=== PATIENT | female | born 1995 | race Caucasian/White ===

== ENCOUNTER 2016-12-13 23:16 | Inpatient (IN) | payer BC ==
[2016-12-13] MEDS ORDERED: SODIUM CHLORIDE 0.9% 1,000 ML IV STA (23:34)
[2016-12-13] MEDS ORDERED: ACETAMINOPHEN TAB 500 MG TAB PO STA (23:34)
--- NOTE | 2016-12-13 23:49 | ED ---
Female Urogenital HPI <Lowell Arriaga - Last Filed: 12/14/16 01:32> - General Source: patient, RN notes reviewed Mode of arrival: wheelchair Limitations: no limitations - History of Present Illness Last Menstrual Period: 05/13/16 <Aaliyah Myers - Last Filed: 12/14/16 01:36> - General Chief complaint: Vaginal Bleeding Stated complaint: abdominal pain vag bleeding Time Seen by Provider: 12/13/16 23:27 - History of Present Illness Initial comments: 20-year-old female presents emergency Department chief complaint of lower abdominal pain. Patient has had this of lower abdominal pain for the last day or so. Patient states that she noticed some blood on the toilet paper today. Patient states she is a . Patient states his belly . Patient states she was concerned due to her continued abdominal pain so she thought that she should be evaluated. Patient states the pain comes and goes at will get intense and then lessened. Patient states he is not currently having any other symptoms. Patient denies any recent fever, chills, shortness of breath, chest pain, back pain, nausea vomiting, numbness or tingling, dysuria or hematuria, constipation or diarrhea, headaches or visual changes, or any other current symptoms. (Aaliyah Myers) - Related Data Home Medications Medication Instructions Recorded Confirmed No Known Home Medications [No 09/20/16 09/20/16 Known Home Medications] Allergies Allergy/AdvReac Type Severity Reaction Status Date / Time Sulfa (Sulfonamide Allergy Unknown Verified 12/13/16 23:24 Antibiotics) Review of Systems ROS Other: All systems not noted in ROS Statement are negative. <Lowell Arriaga - Last Filed: 12/14/16 01:32> ROS Other: All systems not noted in ROS Statement are negative. <Aaliyah Myers - Last Filed: 12/14/16 01:36> ROS Statement: Those systems with pertinent positive or pertinent negative responses have been documented in the HPI. Past Medical History Past Medical History: Seizure Disorder History of Any Multi-Drug Resistant Organisms: None Reported Past Surgical History: Appendectomy Additional Past Surgical History / Comment(s): pda ligation Past Psychological History: Anxiety, Depression Smoking Status: Never smoker Past Alcohol Use History: None Reported Past Drug Use History: None Reported <Aaliyah Myers - Last Filed: 12/14/16 01:36> General Exam <Lowell Arriaga - Last Filed: 12/14/16 01:32> Limitations: no limitations <Aaliyah Myers - Last Filed: 12/14/16 01:36> - General Exam Comments Initial Comments: General: The patient is awake and alert, in no distress, and does not appear acutely ill. Eye: Pupils are equal, round and reactive to light, extra-ocular movements are intact; there is normal conjunctiva bilaterally. No signs of icterus. Ears, nose, mouth and throat: There are moist mucous membranes. Neck: The neck is supple, there is no tenderness. Cardiovascular: There is a regular rate and rhythm. No murmur, rub or gallop is appreciated. Respiratory: Lungs are clear to auscultation, respirations are non-labored, breath sounds are equal. No wheezes, stridor, rales, or rhonchi. Gastrointestinal: Soft, non-distended, mild suprapubic tenderness of the abdomen without masses or organomegaly noted. There is no rebound or guarding present. No CVA tenderness. Bowel sounds are unremarkable. Back: There is no tenderness to palpation in the midline. There is no obvious deformity. No rashes noted. Musculoskeletal: Normal ROM, no tenderness, There is no pedal edema. There is no calf tenderness or swelling. Sensation intact. Pulses equal bilaterally 2+. Neurological: CN II-XII intact, There are no obvious motor or sensory deficits. Coordination appears grossly intact. Speech is normal. Skin: Skin is warm and dry and no rashes or lesions are noted. Psychiatric: Cooperative, appropriate mood & affect, normal judgment. (Aaliyah Myers) Medical Decision Making - Lab Data Result diagrams: 12/13/16 23:55 12/13/16 23:55 <Lowell Arriaga - Last Filed: 12/14/16 01:32> - Lab Data Result diagrams: 12/13/16 23:55 12/13/16 23:55 - Radiology Data Radiology results: report reviewed, image reviewed <Aaliyah Myers - Last Filed: 12/14/16 01:36> - Medical Decision Making Patient reevaluated by myself, Dr. Arriaga. Patient complains of bleeding and lower abdominal/pelvic cramping for the past 4-5 hours. Patient abdomen is distended consistent with 19 weeks gravid state. Minimal tenderness to exam. Ultrasound report reviewed. Case discussed in detail with Dr. Ellison, who will admit to labor and delivery for Dr. Reynoso. Patient was updated. (Lowell Arriaga) 20-year-old female presents emergency 5 chief complaint of lower abdominal pain. At this time the PSYCHOLOGIST Dr. Reynoso was contacted and they will admit the patient to labor and delivery. We will admit the patient at this time. ( Aaliyah Myers) - Lab Data Lab Results 12/13/16 12/13/16 12/13/16 Range/Units 23:55 23:55 23:55 WBC 12.3 H (3.8-10.6) k/uL RBC 4.02 (3.80-5.40) m/uL Hgb 12.7 (11.4-16.0) gm/dL Hct 35.4 (34.0-46.0) % MCV 88.0 (80.0-100.0) fL MCH 31.6 (25.0-35.0) pg MCHC 35.9 (31.0-37.0) g/dL RDW 13.2 (11.5-15.5) % Plt Count 295 (150-450) k/uL Neutrophils % 76 % Lymphocytes % 16 % Monocytes % 5 % Eosinophils % 1 % Basophils % 0 % Neutrophils # 9.4 H (1.3-7.7) k/uL Lymphocytes # 1.9 (1.0-4.8) k/uL Monocytes # 0.6 (0-1.0) k/uL Eosinophils # 0.1 (0-0.7) k/uL Basophils # 0.0 (0-0.2) k/uL Sodium 137 (137-145) mmol/L Potassium 4.1 (3.5-5.1) mmol/L Chloride 104 (98-107) mmol/L Carbon Dioxide 24 (22-30) mmol/L Anion Gap 9 mmol/L BUN 8 (7-17) mg/dL Creatinine 0.52 (0.52-1.04) mg/dL Est GFR (MDRD) Af Amer >60 (>60 ml/min/1.73 sqM) Est GFR (MDRD) Non-Af >60 (>60 ml/min/1.73 sqM) Glucose 87 (74-99) mg/dL Calcium 9.4 (8.4-10.2) mg/dL Total Bilirubin 0.4 (0.2-1.3) mg/dL AST 18 (14-36) U/L ALT 17 (9-52) U/L Alkaline Phosphatase 50 (38-126) U/L Total Protein 6.7 (6.3-8.2) g/dL Albumin 3.8 (3.5-5.0) g/dL HCG, Quant 60264.5 mIU/mL Urine Color Urine Appearance (Clear) Urine pH (5.0-8.0) Ur Specific [place] (1.001-1.035) Urine Protein (Negative) Urine Glucose (UA) (Negative) Urine Ketones (Negative) Urine Blood (Negative) Urine Nitrate (Negative) Urine Bilirubin (Negative) Urine Urobilinogen (<2.0) mg/dL Ur Leukocyte Esterase (Negative) Urine RBC (0-5) /hpf Urine WBC (0-5) /hpf Ur Squamous Epith Cells (0-4) /hpf Amorphous Sediment (None) /hpf Urine Mucus (None) /hpf Blood Type O Positive Blood Type Recheck No 12/14/16 Range/Units 00:35 WBC (3.8-10.6) k/uL RBC (3.80-5.40) m/uL Hgb (11.4-16.0) gm/dL Hct (34.0-46.0) % MCV (80.0-100.0) fL MCH (25.0-35.0) pg MCHC (31.0-37.0) g/dL RDW (11.5-15.5) % Plt Count (150-450) k/uL Neutrophils % % Lymphocytes % % Monocytes % % Eosinophils % % Basophils % % Neutrophils # (1.3-7.7) k/uL Lymphocytes # (1.0-4.8) k/uL Monocytes # (0-1.0) k/uL Eosinophils # (0-0.7) k/uL Basophils # (0-0.2) k/uL Sodium (137-145) mmol/L Potassium (3.5-5.1) mmol/L Chloride (98-107) mmol/L Carbon Dioxide (22-30) mmol/L Anion Gap mmol/L BUN (7-17) mg/dL Creatinine (0.52-1.04) mg/dL Est GFR (MDRD) Af Amer (>60 ml/min/1.73 sqM) Est GFR (MDRD) Non-Af (>60 ml/min/1.73 sqM) Glucose (74-99) mg/dL Calcium (8.4-10.2) mg/dL Total Bilirubin (0.2-1.3) mg/dL AST (14-36) U/L ALT (9-52) U/L Alkaline Phosphatase (38-126) U/L Total Protein (6.3-8.2) g/dL Albumin (3.5-5.0) g/dL HCG, Quant mIU/mL Urine Color Light Yellow Urine Appearance Cloudy H (Clear) Urine pH 7.0 (5.0-8.0) Ur Specific [place] 1.006 (1.001-1.035) Urine Protein Negative (Negative) Urine Glucose (UA) Negative (Negative) Urine Ketones Negative (Negative) Urine Blood Moderate H (Negative) Urine Nitrate Negative (Negative) Urine Bilirubin Negative (Negative) Urine Urobilinogen <2.0 (<2.0) mg/dL Ur Leukocyte Esterase Negative (Negative) Urine RBC 1 (0-5) /hpf Urine WBC 1 (0-5) /hpf Ur Squamous Epith Cells 1 (0-4) /hpf Amorphous Sediment Occasional H (None) /hpf Urine Mucus Rare H (None) /hpf Blood Type Blood Type Recheck Disposition <Lowell Arriaga - Last Filed: 12/14/16 01:32> Time of Disposition: 01:36 Decision Date: 12/14/16 Decision Time: 01:36 <Aaliyah Myers - Last Filed: 12/14/16 01:36> Clinical Impression: Threatened Disposition: ADMITTED IP TO THIS [facility] Condition: Stable Addendum entered and electronically signed by Aaliyah Myers PAC 12/14/16 01:58: Physical Examination Pelvic exam was performed there does appear to be the amniotic sac in the vaginal canal unable to see cervix at this time.
[2016-12-14 00:18] LABS: Basophils % (A) 0 %; CH 31.6; Eosinophils # (A) 0.1 k/uL (0-0.7); Eosinophils % (A) 1 %; HCT 35.4 % (34.0-46.0); HDW 2.62; HGB 12.7 gm/dL (11.4-16.0); Luc # (Auto) 0.25; Luc % (Auto) 2; Lymphocytes # (A) 1.9 k/uL (1.0-4.8); Lymphocytes % (A) 16 %; MCH 31.6 pg (25.0-35.0); MCHC 35.9 g/dL (31.0-37.0); Mean Platelet Volume 7.7; Monocytes # (A) 0.6 k/uL (0-1.0); Monocytes % (A) 5 %; Neutrophils # (A) 9.4 k/uL (1.3-7.7); Neutrophils % (A) 76 %; RBC 4.02 m/uL (3.80-5.40); RDW 13.2 % (11.5-15.5); WBC 12.3 k/uL (3.8-10.6); WBC (Perox) 12.84
[2016-12-14 00:27] LABS: ALT 17 U/L (9-52); AST 18 U/L (14-36); Alkaline Phosphatase 50 U/L (38-126); Anion Gap 9 mmol/L; Blood Urea Nitrogen 8 mg/dL (7-17); Calcium 9.4 mg/dL (8.4-10.2); Carbon Dioxide 24 mmol/L (22-30); Chloride 104 mmol/L (98-107); Glucose 87 mg/dL (74-99); Non-African American GFR(MDRD) >60 (>60 ml/min/1.73 sqM); Potassium 4.1 mmol/L (3.5-5.1); Sodium 137 mmol/L (137-145); Total Bilirubin 0.4 mg/dL (0.2-1.3); Total Protein 6.7 g/dL (6.3-8.2)
[2016-12-14 00:54] VITALS: RESP 16
[2016-12-14 01:11] LABS: HCG,Quantitative Serum 63254.5 mIU/mL
--- NOTE | 2016-12-14 01:21 | US ---
US OB 2ND TRIMESTER INDICATION: 21-year-old woman, clinical age 18 weeks 4 days, presenting with pain. COMPARISON: Ultrasound 09/20/16 TECHNIQUE: Real-time sonographic evaluation of the is performed using grayscale and color flow. FINDINGS: There is a single live intrauterine with fetus in breech presentation. The cervix appears open with bulging membranes and feet extending within the membranes into the cervix. The placenta is posterior with accessory anterior lobe. There is no evidence of placenta previa. Amniotic fluid index is normal measuring 12.7 cm. heart rate is 148 BPM. BPD 4.37 cm 19 weeks 2 days HC 16.50 cm 19 weeks 2 days AC 14.24 cm 19 weeks 4 days FL 2.87 cm 18 weeks 6 days By this ultrasound, estimated gestational age is 19 weeks 0 days +/-1 week corresponding to a sonographic LELA of 05/10/17, concordant with prior dating. Estimated weight is 281.10+/-42.16 g corresponding to the estimated weight percentile of 83.3%. HC/AC ratio is 1.16 (normal range for this fetus is 1.09-1.26). IMPRESSION: Single-live intrauterine with EGA of 19 weeks 0 days +/-1 week corresponding to a sonographic LELA of 05/10/17. Bulging membranes through the internal os of the cervix with breech presentation fetus. feet appear to be extending along with the bulging membranes into the cervix. The placenta is posterior with succenturiate anterior lobe. Normal MAIKEL indiex of 12.7 cm.
[2016-12-14] MEDS ORDERED: MORPHINE SULFATE 4 MG/ML SYRINGE IVP STA (01:25)
[2016-12-14 01:30] LABS: Amorphous Sediment,Urine Occasional /hpf; Appearance,Urine Cloudy (Clear); Bilirubin,Urine Negative (Negative); Glucose,Urine (UA) Negative (Negative); Ketones,Urine Negative (Negative); Leukocyte Esterase,Urine Negative (Negative); Mucus,Urine Rare /hpf; Nitrite,Urine Negative (Negative); Particle Count 5695; Protein,Urine Negative (Negative); RBC,Urine 1 /hpf (0-5); Specific Gravity,Urine 1.006 (1.001-1.035); Squamous Epithelial Cell,Urine 1 /hpf (0-4); UA Billing (MACRO vs. MICRO) MICRO; Urobilinogen,Urine <2.0 mg/dL (<2.0); WBC,Urine 1 /hpf (0-5)
[2016-12-14 02:36] VITALS: BMI 19.9
[2016-12-14] MEDS ORDERED: BUTORPHANOL 1 MG/ML 1 ML VIAL IV PRN (02:36)
[2016-12-14] MEDS ORDERED: KETOROLAC 30 MG/ML 1 ML VIAL IVP PRN (06:11)
[2016-12-14] MEDS ORDERED: LACTATED RINGERS 1,000 ML IV SCH ×2 (06:15→06:30)
[2016-12-14] MEDS ORDERED: LIDOCAINE 1% (PF) 10 MG/ML (30 ML SDV) SQ PRN (06:18)
[2016-12-14] MEDS ORDERED: TERBUTALINE 1 MG/ML VIAL SQ PRN (06:18)
[2016-12-14] MEDS ORDERED: OXYTOCIN 10 UNIT/ML 1 ML VIAL IM PRN (06:18)
[2016-12-14] MEDS ORDERED: METHYLERGONOVINE 0.2 MG/ML 1 ML AMP IM PRN (06:18)
[2016-12-14] MEDS ORDERED: CARBOPROST TROMETHAMINE 250 MCG/ML 1 ML AMP IM PRN (06:18)
--- NOTE | 2016-12-14 06:39 | P.HPOB ---
History of Present Illness H&P Date: 12/14/16 Chief Complaint: Abdominal pain at 18-4/7 weeks' This is a 20-year-old 1 para 0 woman with an estimated due date of 05/13 based on six-week ultrasound who presents in the emergency room with worsening severe lower abdominal pain. She reports intermittent episodes of "round ligament" pain for the last 2 or 3 weeks. This started approximately 5 PM on 12/13/2016 and progressed to significant pain by later in the evening. She then noticed small amount of bright red bleeding and therefore came to the emergency room. In the emergency room she underwent ultrasound which showed hourglassing membranes into the vaginal canal and an infant in the breech presentation. 19 week, 0 day fetus with positive heart rate was noted. The placenta was noted to be posterior with an accessory lobe. MAIKEL greater than 12. She was afebrile and had a normal white blood cell count. She is admitted to labor and delivery for further evaluation. She has a past medical history significant for psychogenic nonepileptic seizures. She is not on anti-seizure medications. Atypical seizures occur in stressful situations. Her family reports a seizure at approximately 5:30 this morning. Assessment by the nursing staff at that time was that it was not a generalized or typical seizure. The patient was coherent throughout and able to talk. She had a grossly normal bilateral neurologic exam and had stable vital signs throughout. No obvious seizure activity was witnessed. Review of Systems Constitutional: Denies chills, Denies fever Cardiovascular: Denies chest pain, Denies high blood pressure, Denies irregular heart beat, Denies lightheadedness, Denies rapid heart beat, Denies shortness of breath Respiratory: Denies cough Gastrointestinal: Denies BRBPR, Denies nausea, Denies vomiting Genitourinary: Reports abnormal vaginal bleeding, Reports Integumentary: Denies pruritus, Denies rash Neurological: Reports seizures, Denies headaches, Denies visual changes Past Medical History Past Medical History: Seizure Disorder Additional Past Medical History / Comment(s): Psychogenic nonepileptic seizure disorder, not on medications History of Any Multi-Drug Resistant Organisms: None Reported Past Surgical History: Appendectomy Additional Past Surgical History / Comment(s): pda ligation Past Anesthesia/Blood Transfusion Reactions: No Reported Reaction Past Psychological History: Anxiety, Depression Smoking Status: Never smoker Past Alcohol Use History: None Reported Past Drug Use History: None Reported - Past Family History Mother Family Medical History: Asthma Additional Family Medical History / Comment(s): Mother with history of cervical incompetence and deliveries Medications and Allergies Home Medications Medication Instructions Recorded Confirmed Type No Known Home Medications [No 09/20/16 12/14/16 History Known Home Medications] Allergies Allergy/AdvReac Type Severity Reaction Status Date / Time Sulfa (Sulfonamide Allergy Unknown Verified 12/13/16 23:24 Antibiotics) Exam - Vital Signs Vital signs: Vital Signs Temp Pulse Pulse Resp BP BP Pulse Ox 12/14/16 02:12 97.8 F 91 16 117/61 98 12/14/16 02:00 98.2 F 95 16 108/62 98 Intake and Output 12/13/16 12/13/16 12/14/16 14:59 22:59 06:59 Other: Weight 52.617 kg Patient Weight 12/14/16 06:59 Weight 52.617 kg Upon my initial evaluation which was approximately 20 minutes after being called for the patient having a seizure, she is not post ictal in appearance. She is oriented to person place and time. She is conversational. She has no obvious focal deficits. Strength, range of motion are intact bilaterally. Normal speech patterns. She is resting comfortably in the bed and is able to answer questions appropriately. Her vital signs are stable. The abdomen is soft and tender. The fundus of the uterus is at the umbilicus and is tender with palpation. On pelvic examination there are membranes in the vaginal canal and there is a moderate amount of bloody show. She is having contractions approximately every 5-10 minutes. Results Result Diagrams: 12/13/16 23:55 12/13/16 23:55 US - abdomen: report reviewed Assessment and Plan (1) 18 weeks gestation of Status: Acute (2) Seizure disorder during in second trimester Status: Acute (3) Threatened Status: Acute Plan: This is a 20-year-old 1 para 0 woman at 18 weeks and 4 days with dilated cervix and prolapsing membranes. She has a history of an atypical seizure disorder and may have had a small seizure but is not currently post ictal antiseizure activity was not witnessed by nursing staff. The concerning nature of the situation is reviewed with the patient, the father of the baby, and her family. I believe delivery is likely in the short-term. They understand that at 18-19 weeks that there is no possibility of viability of the fetus and no intervention will be undertaken for resuscitation. At this point she is not a candidate for a rescue cerclage. She has no evidence of active infection but is having some mild to moderate vaginal bleeding. Comfort measures and observation at this time. Her blood type is O+. Time with Patient: Greater than 30
[2016-12-14] MEDS ORDERED: diphenhydrAMINE 50 MG CAP PO PRN (10:52)
[2016-12-14] MEDS ORDERED: BENZOCAINE/MENTHOL SPRAY 1 GM/SPRAY AEROSOL TOPICAL PRN (10:52)
[2016-12-14] MEDS ORDERED: IBUPROFEN 600 MG TAB PO PRN (10:52)
[2016-12-14] MEDS ORDERED: WITCH HAZEL 1 EACH MED..PAD TOPICAL PRN (10:52)
[2016-12-14] MEDS ORDERED: HYDROCORTISONE 2.5% RECTAL CREAM 30 GM TUBE RECTAL PRN (10:52)
[2016-12-14] MEDS ORDERED: diphenhydrAMINE 25 MG CAP PO PRN (10:52)
[2016-12-14] MEDS ORDERED: diphenhydrAMINE 50 MG/ML 1 ML VIAL IVP PRN ×2 (10:52)
[2016-12-14] MEDS ORDERED: ACETAMINOPHEN TAB 325 MG TAB PO PRN (10:52)
[2016-12-14] MEDS ORDERED: SIMETHICONE 80 MG CHEWABLE PO PRN (10:52)
[2016-12-14] MEDS ORDERED: ZOLPIDEM 5 MG TAB PO PRN (10:52)
[2016-12-14] MEDS ORDERED: LANOLIN CREAM 5 GM TUBE TOPICAL PRN (10:52)
--- NOTE | 2016-12-14 10:52 | P.PROBDLV ---
Vaginal Delivery Note - . Vaginal Delivery Note: The patient is a 20-year-old 1 para 0 admitted at 18+ weeks by a reported 6 week ultrasound in the emergency room. She was admitted with significant cramping and found to have hourglassing membranes a small parts in the vagina. Ultrasound demonstrated roughly 18 week . She did have also some ongoing bleeding. She was admitted and the counseled regarding the diagnosis of inevitable . She had minimal ongoing cramping through the night but ultimately was reexamined this morning at approximately 08 30 at which time most of the fetus was noted be in the vagina with in an intact bag of water. She then for down and pushed at which time spontaneous rupture of membranes is noted for clear fluid. She was able to deliver the fetus with minimal difficulty in footling breech presentation. The cord was clamped and the fetus removed to the nursery. Examination of the fetus from a of phenotypic standpoint demonstrates no obvious anomalies. The ears may be slightly low-set and the hands and feet appear to be quite small. The genitalia appears to be female but is somewhat ambiguous. My overall impression is that the fetus is at a younger gestational age than previously predicted. There was no heartbeat upon delivery. The cord had been clamped and , approximately an hour later, the placenta was delivered and appeared to be intact though it was somewhat macerated. There was adherent clot to a portion of the placenta as well as to the membranes which was likely not etiologic in nature. Examination the perineum and vagina demonstrated no lacerations. The uterus was firm and well below the umbilicus with no significant ongoing bleeding. We did discuss options for evaluation to include chromosomes to which the patient has agreed. There is a consideration for hysterosalpingogram in the future to check for bicornuate uterus or other anatomic concerns. There certainly is also a concern for the possibility of incompetent cervix. Maternal medicine consultation will undoubtedly be sought before another is entertained. Estimated blood loss for the entire delivery process was approximately 250 mL. There were no complications. All sponge, instrument, and needle counts were correct. The patient is resting comfortably in recovery and appears to be grieving appropriately. She will likely be discharged home in several hours when stable.
[2016-12-14] MEDS ORDERED: OXYTOCIN 30 UNITS/500 ML NS 30 UNIT in SALINE 1 500ML.BAG IV SCH (11:00)
[2016-12-14 11:17] VITALS: TEMP 98.3
--- NOTE | 2016-12-14 12:23 | P.DS ---
Providers Date of admission: 12/14/16 01:36 Expected date of discharge: 12/14/16 Attending physician: Lizbeth Ellison Primary care physician: Wesley Interiano - Discharge Diagnosis(es) (1) Complete inevitable without complication Current Visit: Yes Status: Acute (2) 18 weeks gestation of Current Visit: Yes Status: Acute Hospital Course: The patient is a 20-year-old 1 para 0 admitted through the emergency room last evening with reports of increased cramping and vaginal bleeding. See history of present illness for details. In the emergency room, she had pelvic ultrasound demonstrating hourglassing membranes into the vagina with the fetus in breech presentation and small parts in the vagina as well. She was admitted for the diagnosis of inevitable . She was managed expectantly and continued to have some cramping though no significant discomfort. This morning , she was checked and found to have the majority of the fetus in the vagina with the bag of water. She was asked to push and did deliver in the double footling breech position a previable fetus without heart tones. Gross examination of the fetus demonstrates no obvious phenotypic issues though there is some ambiguity to the genitalia. The fetus also appears to be somewhat earlier than the gestational age suggested by ultrasound at 19 weeks. Her dating parameters were made by a 6 week ultrasound through the emergency room as well. She, shortly after delivery of the fetus, delivered the placenta which appeared to be intact though it was certainly macerated. She had no significant ongoing bleeding and was deemed stable for discharge by hospital day #2 approximately 4 hours after delivery of the fetus. She was discharged home to follow-up in the office in approximately 4 weeks' time and to call for any significantly increased bleeding or foul-smelling lochia, significantly increased fever or abdominal pain, perineal complaints, breast complaints, or anything else that concerned her. We did discuss options for workup which will include karyotype and consideration for hysterosalpingogram. She will additionally likely have a maternal medicine consultation prior to entertaining another . Maternal blood type is O+ and rubella status is immune. Procedures: Spontaneous vaginal delivery of the footling breech previable fetus Patient Condition at Discharge: Stable Plan - Discharge Summary Discharge Medication List No Known Home Medications [No Known Home Medications] 09/20/16 [History] Follow up Appointment(s)/Referral(s): Wesley Interiano MD [Primary Care Provider] - 1-2 days Andrew Jerez MD [STAFF PHYSICIAN] - 4 Weeks Discharge Disposition: HOME SELF-CARE
[2016-12-14 12:55] VITALS: BP 101/56; PULSE 82
[2016-12-14] MEDS ORDERED: SENNOSIDES-DOCUSATE SODIUM 1 EACH TAB PO SCH (20:00)
== END 2016-12-14 14:20 | disposition home or self-care (01) | DRG 779 ==
LOC: EC 23:16 → 4FBP 12-14 01:36
PROVIDERS: ADMIT Obstetrics & Gynecology; ATTEND Obstetrics & Gynecology
PROC: 10E0XZZ Delivery of Products of Conception, External Approach (ICD-10-PCS; principal; 2016-12-14)
DX: O03.9 Complete or unspecified spontaneous abortion without complication (principal); O99.352 Diseases of the nervous system complicating pregnancy, second trimester; G40.909 Epilepsy, unspecified, not intractable, without status epilepticus; Z37.1 Single stillbirth; O32.8XX0 Maternal care for other malpresentation of fetus, not applicable or unspecified; Z3A.19 19 weeks gestation of pregnancy; Z86.59 Personal history of other mental and behavioral disorders
CPT/HCPCS: 36415; 76805; 80053; 81001; 84702; 85025; 86900; 86901; 87086; 88233; 88262; 88300; 88305; 96361; 96374; 99285

== ENCOUNTER → 2017-02-17 | Outpatient (CLI) | payer BC ==
[2017-02-17 12:59] LABS: Basophils % (A) 1 %; Eosinophils # (A) 0.1 k/uL (0-0.7); Eosinophils % (A) 1 %; HCT 38.4 % (34.0-46.0); HGB 12.7 gm/dL (11.4-16.0); Hypochromasia Slight; Luc % (Auto) 3; Lymphocytes % (A) 30 %; MCH 28.9 pg (25.0-35.0); MCV 87.5 fL (80.0-100.0); Mean Platelet Volume 6.7; Monocytes # (A) 0.6 k/uL (0-1.0); Monocytes % (A) 9 %; Neutrophils # (A) 3.9 k/uL (1.3-7.7); Neutrophils % (A) 57 %; RBC 4.39 m/uL (3.80-5.40); RDW 11.8 % (11.5-15.5); WBC 6.7 k/uL (3.8-10.6); WBC (Perox) 6.98
== END | disposition home or self-care (01) ==
LOC: LABPAT 12:39
PROVIDERS: ATTEND Obstetrics & Gynecology
DX: Z01.812 Encounter for preprocedural laboratory examination (principal); O73.1 Retained portions of placenta and membranes, without hemorrhage
CPT/HCPCS: 85025

== ENCOUNTER 2017-02-22 07:11 | Day surgery (SDC) | payer BC ==
[2017-02-17 12:00] VITALS: BMI 20.5
[~2017-02-22 07:11] MED LIST: DEXAMETHASONE SOD PHOSPHATE 10 MG/ML 1 ML VIAL IV ONE; HYDROmorphone 1 MG/ML 1 ML SYRINGE IVP PRN; LACTATED RINGERS 1,000 ML IV SCH; MIDAZOLAM 2 MG/2 ML VIAL IV PRN; ONDANSETRON 4 MG/2 ML VIAL IVP ONE; Pre Op ABX Message 1 EACH MISC MISCELLANE ONE; SCOPOLAMINE 1.5MG/72HR PATCH TRANSDERM ONE
[2017-02-22] MEDS ORDERED: LIDOCAINE 1% 20 ML VIAL (10MG/ML) FOR IV START INTRADERMA ONE (07:59)
[2017-02-22] MEDS ORDERED: KETOROLAC 30 MG/ML 1 ML VIAL ONE (08:23)
[2017-02-22] MEDS ORDERED: LIDOCAINE 1% INJ 10MG/ML (20 ML MDV) ONE (08:23)
[2017-02-22] MEDS ORDERED: fentaNYL (PF) 50 MCG/ML 2 ML AMP ONE (08:23)
[2017-02-22] MEDS ORDERED: PROPOFOL 10 MG/ML 20 ML VIAL IV ONE (08:23)
[2017-02-22] MEDS ORDERED: MIDAZOLAM 2 MG/2 ML VIAL ONE (08:23)
[2017-02-22] MEDS ORDERED: IBUPROFEN 600 MG TAB PO PRN (08:25)
[2017-02-22] MEDS ORDERED: METOCLOPRAMIDE 5 MG/ML 2 ML VIAL IVP PRN (08:25)
[2017-02-22] MEDS ORDERED: diphenhydrAMINE 50 MG/ML 1 ML VIAL IVP PRN (08:25)
[2017-02-22] MEDS ORDERED: KETOROLAC 30 MG/ML 1 ML VIAL IVP PRN (08:25)
[2017-02-22] MEDS ORDERED: Acetaminophen-Codeine 300-30mg TAB PO PRN ×2 (08:25)
[2017-02-22] MEDS ORDERED: ONDANSETRON 4 MG/2 ML VIAL IVP PRN (08:25)
[2017-02-22] MEDS ORDERED: SIMETHICONE 80 MG CHEWABLE PO PRN (08:25)
[2017-02-22] MEDS ORDERED: LACTATED RINGERS 1,000 ML IV SCH (08:30)
--- NOTE | 2017-02-22 08:59 | P.OP ---
Date of Procedure: 02/22/17 Preoperative Diagnosis: #1. Status post 18 week spontaneous approximately 10 weeks ago #2. Probable retained products of conception #3. Possible septate uterus Postoperative Diagnosis: Same Procedure(s) Performed: #1. Diagnostic hysteroscopy #2. Dilation and curettage Implants: Anesthesia: other (Gen. by face mask) Surgeon: Andrew Jerez Estimated Blood Loss (ml): 25 IV fluids (ml): 400 Urine output (ml): 5 Pathology: other (Intrauterine contents, probable retained products of conception) Indications for Procedure: Operative Findings: Preoperative pelvic examination demonstrated a roughly 5 week anteverted mobile normal shaped uterus with the cervix open to approximately 1 cm. There was some moderate ongoing bleeding present. Hysteroscopic Rachid, the uterus was distended using sorbitol which did produce an excellent view of what was normal certainly retained products of conception. A septum was not clearly identified secondary to the retained products. With sharp curettage, a fairly significant amount tissue was removed between the sharp curet and the polyp forceps. There was the sensation of a possible short septum at the fundus of the uterus. Otherwise the typical gritty texture was encountered following curettage and removal of the tissue. Description of Procedure: The patient was prepped and draped in usual fashion after general anesthesia was administered by the anesthesiologist. A weighted speculum was placed and the bladder drained of approximately 5 mL of clear toma urine. The anterior lip of the cervix was grasped with a single-tooth tenaculum and uterus sounded to approximately 8 cm. The largest dilator was placed without difficulty. The diagnostic hysteroscope was placed in the cavity and the cavity distended with sorbitol. The findings are as noted above. A clear septum was never identified secondary to the significant amount of retained products present. The scope was then set aside and a sharp curette introduced into the intrauterine cavity where the endometrial cavity was thoroughly and circumferentially curetted with the tissue removed onto a Telfa in the vagina. A fairly significant amount of tissue was noted. After several passes circumferentially using the sharp curet, it was set aside in favor of a polyp forceps which removed other loose pieces of tissue though significantly smaller portions then the curette. Once minimal tissue was being further removed, the procedure was abandoned. The tenaculum was removed from the cervix and with no ongoing bleeding. There was minimal ongoing bleeding from the cervix. All sponge, instrument, and needle counts were correct. Estimated blood loss was 25 mL or less. There were no complications. The patient tolerated the procedure well and proceeded to the recovery room in stable condition.
[2017-02-22 09:07] VITALS: TEMP 97.4
[2017-02-22 09:55] VITALS: RESP 16
[2017-02-22 10:10] VITALS: BP 99/61; PULSE 62
== END 2017-02-22 10:34 | disposition home or self-care (01) ==
LOC: OR 07:11
PROVIDERS: ATTEND Obstetrics & Gynecology
DX: O03.4 Incomplete spontaneous abortion without complication (principal); Z79.2 Long term (current) use of antibiotics; Z79.899 Other long term (current) drug therapy; Z88.2 Allergy status to sulfonamides
CPT/HCPCS: 81025; 88305; 59812; J2250; J1100; J2405; J2001; J3010; J1885; J2704

== ENCOUNTER 2018-09-01 12:42 | Emergency (ER) | payer BC ==
[2018-09-01 12:52] VITALS: RESP 18
[2018-09-01] MEDS ORDERED: SODIUM CHLORIDE 0.9% 1,000 ML IV STA (13:31)
[2018-09-01] MEDS ORDERED: LORazepam 2 MG/ML INJ IV STA (13:31)
--- NOTE | 2018-09-01 13:35 | ED ---
General Adult HPI - General Chief complaint: Dizziness Stated complaint: Blurred Vision, History of seizures Time Seen by Provider: 09/01/18 13:25 Source: patient, RN notes reviewed Mode of arrival: wheelchair Limitations: no limitations - History of Present Illness Initial comments: Patient is a pleasant 22-year-old female presenting to the emergency department following an episode that occurred at lunch. Patient states she suddenly developed severe pelvic cramps. Patient states following this she felt lightheaded and felt if symptoms worsen she may pass out. Patient does feel a little bit shaky otherwise symptoms have completely resolved at this time. Last menstrual cycle was 2 weeks ago. Patient feels it is very unlikely that she could be . No abdominal or pelvic pain at this time. No confusion. No weakness. No speech problems. No chest pain or dyspnea. - Related Data Home Medications Medication Instructions Recorded Confirmed Desvenlafaxine Succinate [Pristiq] 100 mg PO DAILY 09/01/18 09/01/18 Omeprazole [PriLOSEC] 20 mg PO DAILY 09/01/18 09/01/18 Allergies Allergy/AdvReac Type Severity Reaction Status Date / Time Sulfa (Sulfonamide Allergy Rash/Hives Verified 09/01/18 13:31 Antibiotics) Review of Systems ROS Statement: Those systems with pertinent positive or pertinent negative responses have been documented in the HPI. ROS Other: All systems not noted in ROS Statement are negative. 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, demise in December @18 weeks History of Any Multi-Drug Resistant Organisms: None Reported Past Surgical History: Adenoidectomy, Appendectomy, Tonsillectomy Additional Past Surgical History / Comment(s): histroscopy, pda ligation Past Anesthesia/Blood Transfusion Reactions: Previous Problems w/ Anesthesia Additional Past Anesthesia/Blood Transfusion Reaction / Comment(s): slow to wake up Past Psychological History: Anxiety, Depression Smoking Status: Never smoker Past Alcohol Use History: None Reported Past Drug Use History: None Reported - Past Family History Mother Family Medical History: Asthma Additional Family Medical History / Comment(s): Mother with history of cervical incompetence and deliveries General Exam Limitations: no limitations General appearance: alert, in no apparent distress Head exam: Present: atraumatic Eye exam: Present: normal appearance, PERRL, EOMI. Absent: nystagmus ENT exam: Present: normal oropharynx Neck exam: Present: normal inspection Respiratory exam: Present: normal lung sounds bilaterally Cardiovascular Exam: Present: regular rate, normal rhythm GI/Abdominal exam: Present: soft. Absent: tenderness Extremities exam: Present: normal inspection. Absent: pedal edema, calf tenderness Neurological exam: Present: alert, oriented X3, CN II-XII intact. Absent: motor sensory deficit Expanded Neurological exam: Present: protecting the airway Patient oriented to: Present: person, place, time Speech: Present: fluid speech Cranial nerves: EOM's Intact: Normal Motor strength exam: RUE: 5, LUE: 5, RLE: 5, LLE: 5 Eye Response: (4) open spontaneously Motor Response: (6) obeys commands Verbal Response: (5) oriented Psychiatric exam: Present: normal affect, normal mood Skin exam: Present: normal color Course Vital Signs 09/01/18 12:47 Temperature 98.3 F Pulse Rate 71 Respiratory 18 Rate Blood Pressure 110/71 O2 Sat by Pulse 100 Oximetry EKG Findings - EKG Comments: EKG Findings:: Normal sinus rhythm 88. CO 146. QRS 88. QT 358. QTC 433. Normal axis. Normal QRS. No acute ST change. Medical Decision Making - Medical Decision Making Patient reevaluated and resting comfortably in bed. Patient symptom free at this time. Patient is updated on results and need for follow-up. - Lab Data Result diagrams: 09/01/18 13:58 09/01/18 13:58 Lab Results 09/01/18 09/01/18 Range/Units 13:58 13:58 WBC 6.6 (3.8-10.6) k/uL RBC 4.73 (3.80-5.40) m/uL Hgb 13.4 (11.4-16.0) gm/dL Hct 39.3 (34.0-46.0) % MCV 83.1 (80.0-100.0) fL MCH 28.4 (25.0-35.0) pg MCHC 34.2 (31.0-37.0) g/dL RDW 13.2 (11.5-15.5) % Plt Count 264 (150-450) k/uL Neutrophils % 67 % Lymphocytes % 22 % Monocytes % 8 % Eosinophils % 1 % Basophils % 1 % Neutrophils # 4.5 (1.3-7.7) k/uL Lymphocytes # 1.4 (1.0-4.8) k/uL Monocytes # 0.5 (0-1.0) k/uL Eosinophils # 0.1 (0-0.7) k/uL Basophils # 0.0 (0-0.2) k/uL Sodium 140 (137-145) mmol/L Potassium 4.7 (3.5-5.1) mmol/L Chloride 101 (98-107) mmol/L Carbon Dioxide 30 (22-30) mmol/L Anion Gap 9 mmol/L BUN 16 (7-17) mg/dL Creatinine 0.70 (0.52-1.04) mg/dL Est GFR (CKD-EPI)AfAm >90 (>60 ml/min/1.73 sqM) Est GFR (CKD-EPI)NonAf >90 (>60 ml/min/1.73 sqM) Glucose 103 H (74-99) mg/dL Calcium 10.1 (8.4-10.2) mg/dL Total Bilirubin 0.3 (0.2-1.3) mg/dL AST 25 (14-36) U/L ALT 25 (9-52) U/L Alkaline Phosphatase 51 (38-126) U/L Total Protein 8.0 (6.3-8.2) g/dL Albumin 4.8 (3.5-5.0) g/dL HCG, Qual Not Detected Disposition Clinical Impression: Dizziness Disposition: HOME SELF-CARE Condition: Stable Instructions: Dizziness (ED) Additional Instructions: Please follow-up with primary care physician in the next couple days for recheck. Return for increased pain, fever, confusion, increased dizziness, passing out, worsening symptoms or other concerns. Is patient prescribed a controlled substance at d/c from ED?: No Referrals: Wesley Interiano MD [Primary Care Provider] - 1-2 days Time of Disposition: 14:50
[2018-09-01 14:23] LABS: Basophils % (A) 1 %; Eosinophils # (A) 0.1 k/uL (0-0.7); Eosinophils % (A) 1 %; HCT 39.3 % (34.0-46.0); HGB 13.4 gm/dL (11.4-16.0); Lymphocytes # (A) 1.4 k/uL (1.0-4.8); Lymphocytes % (A) 22 %; MCH 28.4 pg (25.0-35.0); MCHC 34.2 g/dL (31.0-37.0); MCV 83.1 fL (80.0-100.0); Mean Platelet Volume 6.8; Monocytes # (A) 0.5 k/uL (0-1.0); Monocytes % (A) 8 %; Neutrophils # (A) 4.5 k/uL (1.3-7.7); Neutrophils % (A) 67 %; Platelet Count 264 k/uL (150-450); RBC 4.73 m/uL (3.80-5.40); RDW 13.2 % (11.5-15.5); WBC 6.6 k/uL (3.8-10.6)
[2018-09-01 14:36] LABS: HCG,Qualitative Serum Not Detected
[2018-09-01 14:39] LABS: ALT 25 U/L (9-52); AST 25 U/L (14-36); Albumin 4.8 g/dL (3.5-5.0); Alkaline Phosphatase 51 U/L (38-126); Anion Gap 9 mmol/L; Blood Urea Nitrogen 16 mg/dL (7-17); Calcium 10.1 mg/dL (8.4-10.2); Carbon Dioxide 30 mmol/L (22-30); Chloride 101 mmol/L (98-107); Glucose 103 mg/dL (74-99); Potassium 4.7 mmol/L (3.5-5.1); Sodium 140 mmol/L (137-145); Total Bilirubin 0.3 mg/dL (0.2-1.3)
[2018-09-01 14:56] VITALS: TEMP 98.5
[2018-09-01 15:13] VITALS: BP 117/67; PULSE 78
== END 2018-09-01 15:12 | disposition home or self-care (01) ==
LOC: EC 12:42
DX: R42 Dizziness and giddiness (principal); R19.8 Other specified symptoms and signs involving the digestive system and abdomen; F32.9 Major depressive disorder, single episode, unspecified; F41.9 Anxiety disorder, unspecified; Z79.899 Other long term (current) drug therapy; Z88.2 Allergy status to sulfonamides; Z53.29 Procedure and treatment not carried out because of patient's decision for other reasons
CPT/HCPCS: 36415; 80053; 84703; 85025; 93005; 96360; 99284

== ENCOUNTER → 2024-02-21 | Outpatient (CLI) | payer OTHER ==
[2024-02-21 15:43] LABS: Basophils # (A) 0.06 X 10*3/uL (0.00-0.10); Basophils % (A) 1.3 %; Eosinophils # (A) 0.09 X 10*3/uL (0.04-0.35); Eosinophils % (A) 1.9 %; HCT 41.8 % (37.2-46.3); HGB 14.3 g/dL (12.0-15.0); Lymphocytes # (A) 1.85 X 10*3/uL (0.90-5.00); Lymphocytes % (A) 38.9 %; MCHC 34.2 g/dL (32.0-37.0); MCV 84.8 FL (80.0-97.0); Mean Platelet Volume 9.4 FL (9.5-12.2); Monocytes # (A) 0.45 X 10*3/uL (0.20-1.00); Monocytes % (A) 9.5 %; NRBC Per 100 WBC 0 X 10*3/uL (0.00-0.01); Neutrophils % (A) 48.2 %; Platelet Count 399 X 10*3/uL (140-440); RBC 4.93 X 10*6/uL (4.10-5.20); RDW 12.2 % (11.5-14.5); WBC 4.76 X 10*3/uL (4.50-10.00)
[2024-02-21 16:10] LABS: ALT 14 U/L (8-44); AST 19 U/L (13-35); Albumin/Globulin Ratio 2.17 Ratio (1.60-3.17); Alkaline Phosphatase 77 U/L (41-126); BUN/Creat Ratio 8.33 Ratio (12.00-20.00); Blood Urea Nitrogen 7.5 mg/dL (9.0-27.0); Carbon Dioxide 23.8 mmol/L (21.6-31.8); Chloride 104 mmol/L (96-109); Chol/HDL Ratio 3.78 Ratio; Globulin 2.3 g/dL (1.6-3.3); Glucose 96 mg/dL (70-110); Potassium 4.5 mmol/L (3.5-5.5); Sodium 140 mmol/L (135-145); T4, Free (Free Thyroxine) 1.23 ng/dL (0.80-1.80); Total Bilirubin 0.6 mg/dL (0.3-1.2); Total Protein 7.3 g/dL (6.2-8.2)
== END | disposition home or self-care (01) ==
LOC: LABWHC1 10:58
PROVIDERS: ATTEND Family Medicine
DX: Z00.00 Encounter for general adult medical examination without abnormal findings (principal); E06.3 Autoimmune thyroiditis
CPT/HCPCS: 36415; 80053; 80061; 84432; 84439; 84443; 85025; 86376